=== PATIENT | male | born 1960 | race Two or more races ===

== ENCOUNTER 2024-07-07 12:44 | Emergency (ER) | payer OTHER ==
[~2024-07-07] VITALS: Ht 177.8 cm; Wt 99.8 kg
[2024-07-07] MEDS ORDERED: TRAMADOL HCL 50 MG TABLET PO ONE (13:15)
[2024-07-07] MEDS ORDERED: HYDRALAZINE HCL10 MG PO (13:15)
[2024-07-07] MEDS ORDERED: COZAAR25 MG PO (13:15)
[2024-07-07 13:29] LABS: HEMATOCRIT 42.2 % (39.0-48.0); MEAN CELL VOLUME 86.4 fL (80.0-100.00); MEAN CORPUSCULAR HEMOGLOBIN 30.7 pg (27.00-32.0); MEAN CORPUSCULAR HGB CONC 35.6 g/dl (32.0-36.0); PLATELET COUNT 225 K/uL (150-450); RED BLOOD COUNT 4.88 M/uL (4.00-6.00)
[2024-07-07] MEDS ORDERED: KETOROLAC TROMETHAMINE 30 MG VIAL ONE (15:29)
[2024-07-07 15:34] LABS: PH,URINE 5.5 (5.0-8.0); URINE APPEARANCE Clear; URINE BILIRRUBIN Negative (NEGATIVE); URINE BLOOD Negative; URINE COLOR Dark Yellow; URINE GLUCOSE Negative (NEGATIVE); URINE KETONE Negative (NEGATIVE); URINE LEUKOCYTE Negative; URINE NITRATE Negative; URINE PROTEIN 30 (NEGATIVE); URINE UROBILINOGEN 0.2 E.U./dl
[2024-07-07 15:37] LABS: URINE BACTERIA 832.2 uL (0.0-1933); URINE CAST 12.07 uL (0.0-1.40); URINE EPITHELIAL CELLS 29.2 uL (0.0-38.8); URINE RBC 2.9 uL (0.0-20.8); URINE WBC 19.6 uL (0.0-23.2)
[2024-07-07 15:38] LABS: ALBUMIN 3.9 gm/dL (3.4-5.0); BILIRUBIN TOTAL 0.7 mg/dL (0.3-1.2); CALCIUM 9.4 mg/dL (8.5-10.1); CREATININE SERUM 0.97 mg/dL (0.70-1.30); GFR 77.43; GLOBULINA 3.1 G/DL (2.4-3.5); POTASSIUM 5.49 mEq/L (3.5-5.1)
[2024-07-07] MEDS ORDERED: SODIUM POLYSTYRENE SULFONATE 15 G/4 TSP TSP PO ONE (16:00)
[2024-07-07] MEDS ORDERED: LEVALBUTEROL HCL 1.25 MG/3 ML SOLUTION IH ONE ×2 (16:15→17:18)
[2024-07-07] MEDS ORDERED: BENZONATATE 200 MG CAPSULE PO ONE (16:15)
[2024-07-07] MEDS ORDERED: MONTELUKAST SODIUM 10 MG TABLET PO ONE (16:15)
[2024-07-07 18:28] LABS: CREATININE SERUM 0.93 mg/dL (0.70-1.30); GFR 81.29; POTASSIUM 4.57 mEq/L (3.5-5.1)
== END 2024-07-07 19:36 | disposition home or self-care (01) ==
LOC: ER 12:44
PROVIDERS: General Practice
DX: R55 Syncope and collapse (principal); I10 Essential (primary) hypertension; N40.0 Benign prostatic hyperplasia without lower urinary tract symptoms; W18.39XA Other fall on same level, initial encounter; Y93.89 Activity, other specified; Y92.89 Other specified places as the place of occurrence of the external cause; Z20.822 Contact with and (suspected) exposure to COVID-19; S00.83XA Contusion of other part of head, initial encounter